=== PATIENT | female | born 1970 | race African-American/Black ===

== ENCOUNTER → 2019-02-09 | Outpatient (CLI) | payer BC ==
[2015-12-06 12:55] VITALS: BP 152/81
[~2019-02-09] MED LIST: ASPI-630 PO; FERR325T14 PO; LOSA-73 PO; LOSA1TAB22 PO; MEDR10TA3 PO; METF100010 PO; MULT1TAB49 PO
--- NOTE | 2019-02-09 15:12 | KCIC ---
Bilateral digital screening mammograms with 3-D tomosynthesis: Reason for examination: Routine screening. Comparison is made to previous studies dated back to 06/28/2013. Bilateral mammograms in CC and oblique projections were obtained with 2-D imaging and 3-D tomosynthesis imaging on a [employer] unit and reviewed on the workstation. Interpretation was made with the benefit of CAD. The skin and nipples show no abnormalities. No abnormal axillary lymph nodes are seen. The breast parenchyma is predominantly fatty. (Breast density: Category A.) There continue to be some calcifications at the 2:00 position posteriorly in the left breast which are stable. There also continue to be a few faint calcifications 10:00 C position of the right breast which appear to be stable. There are no new dominant masses, suspicious calcifications or architectural distortion. Bilateral biopsy clips remain present. Impression: No evidence of malignancy. Recommend routine screening. BI-RAD Category 2: Benign. "Our facility is accredited by the [employer] Mammography Program." This patient's information has been entered into a reminder system for the patient to be notified with the results of her examination and a target date for the next mammogram. Electronically signed by: Sheila Gonzalez MD (02/09/2019 3:09 PM) [id number]
== END | disposition home or self-care (01) ==
LOC: KCIC MAMMO 12:22
PROVIDERS: ATTEND Family Medicine
DX: Z12.31 Encounter for screening mammogram for malignant neoplasm of breast (principal); N64.89 Other specified disorders of breast
CPT/HCPCS: 77063; 77067